=== PATIENT | male | born 1985 | race Caucasian/White ===

== ENCOUNTER 2019-01-13 08:34 | Emergency (ER) | payer SELFPAY ==
[2019-01-13] MEDS: ONDANSETRON (ODT) 4 MG TAB ODT (09:06)
[2019-01-13] MEDS: KETOROLAC 60 MG INJ IM (09:06)
== END 2019-01-13 10:28 | disposition home or self-care (01) ==
LOC: FTE 08:34
DX: R11.10 Vomiting, unspecified (principal)
CPT/HCPCS: 96372; 99284-25